=== PATIENT | male | born 1985 | race Caucasian/White ===

== ENCOUNTER 2022-06-25 05:30 | Day surgery (SDC) | payer MEDICAID ==
[~2022-06-25] VITALS: Ht 180.3 cm; Wt 108.9 kg
[2022-06-25] MEDS ORDERED: ROCURONIUM BROMIDE 10 MG/ML (ZEMURON) ONE (07:35)
[2022-06-25] MEDS ORDERED: SUGAMMADEX SODIUM 200 MG/2 ML VIAL IV ONE (07:35)
[2022-06-25] MEDS ORDERED: OXYMETAZOLINE HCL 0.05% NASAL SPRAY NS ONE (07:35)
[2022-06-25] MEDS ORDERED: LIDOCAINE 2%, 20 ML MDV ONE (07:35)
[2022-06-25] MEDS ORDERED: DESFLURANE 15 MIN GAS INH ONE (07:35)
[2022-06-25] MEDS ORDERED: MUPIROCIN 2% TOPICAL OINTMENT 22 GM ONE (07:35)
[2022-06-25] MEDS ORDERED: LIDOCAINE/EPI 1% 1:100000 20 ML VIAL ONE (07:35)
[2022-06-25] MEDS ORDERED: MIDAZOLAM HCL 5 MG/5 ML VIAL ONE (07:35)
[2022-06-25] MEDS ORDERED: DEXAMETHASONE SOD PHOSPHATE 4 MG/ML VIAL ONE (07:35)
[2022-06-25] MEDS ORDERED: fentaNYL CITRATE 250 MCG/5 ML AMP ONE (07:35)
[2022-06-25] MEDS ORDERED: PROPOFOL 200MG/ 20ML VIAL (DIPRIVAN) IV ONE (07:35)
[2022-06-25] MEDS ORDERED: LR 1,000 ML IV.SOLN IV ONE (07:35)
[2022-06-25] MEDS ORDERED: NS IRRIG SOLN 1000 ML IR ONE (07:35)
[2022-06-25] MEDS ORDERED: ONDANSETRON HCL 4 MG/2 ML VIAL ONE (07:35)
[2022-06-25] MEDS ORDERED: ACETAMINOPHEN I.V. 1000 MG 100 ML IV ONE (08:22)
[2022-06-25] MEDS ORDERED: MEPERIDINE HCL/PF 25 MG/ML DISP.SYRIN IVP PRN (08:30)
[2022-06-25] MEDS ORDERED: LR 1,000 ML IV SCH (08:30)
[2022-06-25] MEDS ORDERED: METOCLOPRAMIDE HCL 10 MG/2 ML VIAL IVP PRN (08:30)
[2022-06-25] MEDS ORDERED: HYDROmorphone 1 MG/ML INJ. CARTRIDGE IVP PRN ×2 (08:30)
[2022-06-25] MEDS ORDERED: hydrALAZINE HCL 20 MG/ML VIAL IVP PRN (08:30)
[2022-06-25] MEDS ORDERED: LABETALOL 100 MG/ 20ML VIAL IVP PRN (08:30)
[2022-06-25] MEDS ORDERED: MIDAZOLAM HCL 2 MG/2 ML VIAL (VERSED) IVP PRN (08:30)
[2022-06-25 10:55] VITALS: BP_SYST 133
== END 2022-06-25 11:53 | disposition home or self-care (01) ==
LOC: SDS 05:30 → SMU 05:30 → SDS 11:53
PROVIDERS: ATTEND Otolaryngology
DX: J34.2 Deviated nasal septum (principal); D38.5 Neoplasm of uncertain behavior of other respiratory organs; R22.0 Localized swelling, mass and lump, head; K21.9 Gastro-esophageal reflux disease without esophagitis; E66.9 Obesity, unspecified; I10 Essential (primary) hypertension; E78.00 Pure hypercholesterolemia, unspecified; Z87.891 Personal history of nicotine dependence; Z20.822 Contact with and (suspected) exposure to COVID-19; Z68.33 Body mass index [BMI] 33.0-33.9, adult
CPT/HCPCS: 30520; 30140; 31240; 36415; 88304; 88311; 87426; J3490; J1100; J2001; J2250; J2405; J2704; J3010; J7120; J0131